=== PATIENT | female | born 1965 | race Caucasian/White ===

== ENCOUNTER 2016-12-30 22:32 | Emergency (ER) | payer SELFPAY ==
--- NOTE | 2016-12-30 23:06 | EDM.PDOC ---
[id number]: bronchitis Time Seen by Provider: 12/30/16 22:47 Source of Information: Reports: Patient, Family History Limitations: Reports: No limitations - History of Present Illness INITIAL COMMENTS - FREE TEXT/NARRATIVE: Patient seen earlier today for upper respiratory infection. She was given a working diagnosis of bronchitis and given a z-pack, albuterol inhaler, and prednisone. She has chills, fever, stuffy nose, pressure to her ears. She states she started feeling ill last Friday and it has only worsened. She also states she has history of bipolar and she has not slept the last few nights. She is worried that this lack of sleep may lead to a manic episode. She has been off of her trileptal for a year but did restart it today. She has not taken the prednisone either due to fear this may trigger the episode as well. She states a former doctor told her that this may have happened to her in the past. She denies smoking, drinking or drug use. Symptom Onset Date: 12/27/16 Timing/Duration: Reports: Getting worse, Gradual onset Severity: moderate Location, General: Reports: head, chest Associated Symptoms (General): Reports: cough, fever/chills, shortness of breath - Related Data Allergies/ADRs: Allergies Allergy/AdvReac Type Severity Reaction Status Date / Time cephalexin [From Keflex] Allergy Rash Verified 12/30/16 23:15 prednisone Allergy Change Verified 12/30/16 23:15 Mental Status Sulfa (Sulfonamide Allergy Rash Verified 12/30/16 23:15 Antibiotics) Home Meds: Home Meds Albuterol Sulfate [Proventil Hfa] 2 puff INH Q4H PRN 12/30/16 [History] Azithromycin [Zithromax] 1 tab PO DAILY 12/30/16 [History] OXcarbazepine [Trileptal] 300 mg PO DAILY 12/30/16 [History] methylPREDNISolone [Methylprednisolone] 4 mg PO DAILY 12/30/16 [History] Past Medical History Psychiatric History: Reports: Bipolar Social & Family History - Tobacco Use Smoking Status *Q: Never Smoker ED ROS GENERAL - Review of Systems Review Of Systems: See Below Constitutional: Reports: fever, chills HEENT: Reports: Ear pain Respiratory: Reports: Shortness of Breath Cardiovascular: Reports: No symptoms Endocrine: Reports: no symptoms GI/Abdominal: Reports: No symptoms : Reports: no symptoms Musculoskeletal: Reports: no symptoms Skin: Reports: no symptoms Neurological: Reports: No Symptoms Psychiatric: Reports: No symptoms Hematologic/Lymphatic: Reports: no symptoms Immunologic: Reports: no symptoms ED EXAM, GENERAL - Physical Exam Exam: See Below Exam Limited By: No limitations General Appearance: alert, WD/WN, no apparent distress Eye Exam: bilateral eye: EOMI, PERRL Ears: normal TMs Nose: other (edematous turbinates) Throat/Mouth: Normal inspection, Normal oropharynx Head: atraumatic, normocephalic Neck: normal inspection, supple, non-tender, full range of motion Respiratory/Chest: no respiratory distress, chest non-tender, decreased breath sounds, wheezing Cardiovascular: normal peripheral pulses, regular rate, rhythm GI/Abdominal: normal bowel sounds, soft, non tender Neurological: alert, oriented, CN II-XII intact, normal cognition Psychiatric: normal affect, anxious Skin Exam: Warm, Dry, Intact Lymphatic: no adenopathy Course - Vital Signs Last Recorded V/S: Last Vital Signs Temp 37.6 C 12/30/16 22:35 Pulse 104 H 12/30/16 22:35 Resp 20 12/30/16 22:35 BP 131/84 12/30/16 22:35 Pulse Ox 97 12/30/16 22:35 - Orders/Labs/Meds Meds: Medications Discontinued Medications Generic Name Dose Route Start Last Admin Trade Name Freq PRN Reason Stop Dose Admin Albuterol/Ipratropium 3 ml 12/30/16 23:08 12/30/16 23:26 Duoneb 3.0-0.5 Mg/3 Ml NEB 12/30/16 23:09 3 ml ONETIME ONE Administration Diphenhydramine HCl 50 mg 12/30/16 23:07 12/30/16 23:37 Benadryl PO 12/30/16 23:08 50 mg ONETIME ONE Administration Departure - Departure Time of Disposition: 23:49 Disposition: Home, Self-Care 01 Condition: good Clinical Impression: Respiratory infection, upper Qualifiers: URI type: unspecified URI Qualified Code(s): J06.9 - Acute upper respiratory infection, unspecified Instructions: Acute Bronchitis, [id number] Referrals: Mariah Galeano MD [Primary Care Provider] - Forms: ED Department Discharge Additional Instructions: continue your medications as prescribed. Finish your antibiotic Continue your trileptal even if you feel fine and have not had a manic episode for some time. Stay hydrated to help loosen and thin your mucous production and secretions You may take benadryl up to 4 times daily. Other antihistamines may also help reduce fluid behind your ears without causing drowsiness. These include Zyrtec and Claritin. May use humidifier at night You may also use a saline rinse or "santiago pot". Do not use tap water for this. Use distilled water instead. Follow up with [facility] as needed Please call us with any questions or concerns in the meantime - Problem List & Annotations (1) Respiratory infection, upper SNOMED Code(s): [id number] Code(s): J06.9 - ACUTE UPPER RESPIRATORY INFECTION, UNSPECIFIED Status: Acute Priority: Low Qualifiers: URI type: unspecified URI Qualified Code(s): J06.9 - Acute upper respiratory infection, unspecified - Problem List Review Problem List Initiated/Reviewed/Updated: Yes - Assessment/Plan Assessment:: Upper respiratory infection Plan: continue your medications as prescribed. Finish your antibiotic Continue your trileptal even if you feel fine and have not had a manic episode for some time. Stay hydrated to help loosen and thin your mucous production and secretions You may take benadryl up to 4 times daily. Other antihistamines may also help reduce fluid behind your ears without causing drowsiness. These include Zyrtec and Claritin. May use humidifier at night You may also use a saline rinse or "santiago pot". Do not use tap water for this. Use distilled water instead. Follow up with [facility] as needed Please call us with any questions or concerns in the meantime
[2016-12-30] MEDS ORDERED: diphenhydrAMINE 25 MG Cap PO ONE (23:07)
[2016-12-30] MEDS ORDERED: Albuterol/Ipratropium 3.0-0.5 MG/3 ML Neb Soln NEB ONE (23:08)
[2016-12-30 23:15] VITALS: BP 131/84
== END 2016-12-30 23:49 | disposition home or self-care (01) ==
LOC: VM.ED 22:32
DX: J06.9 Acute upper respiratory infection, unspecified (principal); F31.9 Bipolar disorder, unspecified; Z88.2 Allergy status to sulfonamides; Z88.8 Allergy status to other drugs, medicaments and biological substances; Z79.899 Other long term (current) drug therapy
CPT/HCPCS: 94640; 99284; A9270; 99283-GF